=== PATIENT | female | born 1990 | race Two or more races ===

== ENCOUNTER 2016-12-12 09:00 | Emergency (ER) | payer MEDICAID ==
[~2016-12-12] VITALS: Ht 172.7 cm; Wt 98.4 kg
[2016-12-12 09:18] VITALS: BP 126/63
[2016-12-12 09:41] LABS: Basophils # (auto) 0 uL; Basophils % (auto) 0.7 % (0.0-2.0); CONDITION Y; DEFINITIVE SEE PRINTOUT; Eosinophils # (auto) 0 uL; Eosinophils % (auto) 0.4 % (0.0-7.0); Hematocrit 33.7 % (36.0-46.0); Hemoglobin 11.2 g/dL (12.2-16.2); Lymphocytes # (auto) 1.1 uL; Lymphocytes % (auto) 19.2 % (10.0-50.0); Mean Corpuscular Hemoglobin 22.9 pg (28.0-32.0); Mean Corpuscular Hgb Conc. 33.2 g/dL (32.0-36.0); Mean Platelet Volume 7.2 fL (7.4-10.4); Monocytes # (auto) 0.4 uL; Monocytes % (auto) 6.2 % (0.0-12.0); Neutrophils # (auto) 4.3 uL; Neutrophils % (auto) 73.5 % (37.0-80.0); Platelet Count (auto) 410 10^3/uL (140-450); White Blood Cell 5.9 10^3/uL (4.4-10.8)
[2016-12-12 09:50] LABS: Red Cell Distribution Width 20.9 % (11.6-16.0)
[2016-12-12 10:11] LABS: Albumin 3.6 g/dL (3.4-5.0); BUN/Creatinine Ratio 12.5; Bilirubin, Total 0.4 mg/dL (0.2-1.0); Calcium 8.6 mg/dL (8.5-10.1); Potassium 3.5 mmol/L (3.5-5.1); Total Protein 8.5 g/dL (6.4-8.2)
[2016-12-12 10:44] LABS: Anisocytosis Slight; Hypochromia Slight; Microcytosis Slight; Platelet Estimate Adequate
== END 2016-12-12 12:03 | disposition home or self-care (01) ==
LOC: ER 09:02
DX: O20.9 Hemorrhage in early pregnancy, unspecified (principal); O26.891 Other specified pregnancy related conditions, first trimester; Z3A.09 9 weeks gestation of pregnancy
CPT/HCPCS: 36415; 76801; 76817; 80053; 84702; 85025

== ENCOUNTER 2017-02-20 16:01 | Observation (INO) | payer MEDICAID ==
[~2017-02-20] VITALS: Ht 170.2 cm; Wt 107.0 kg
[2017-02-20 16:40] VITALS: BP 118/75
[2017-02-20] MEDS ORDERED: PREN-153 OR (22:31)
== END 2017-02-20 19:55 | disposition other institution (70) | DRG 566 ==
LOC: ER 16:01 → LDRP 17:10 → ER 17:22 → LDRP 17:22
PROVIDERS: ADMIT Obstetrics & Gynecology; ATTEND Obstetrics & Gynecology
DX: O36.8120 Decreased fetal movements, second trimester, not applicable or unspecified (principal); J32.9 Chronic sinusitis, unspecified; O99.512 Diseases of the respiratory system complicating pregnancy, second trimester; Z3A.20 20 weeks gestation of pregnancy
CPT/HCPCS: 59025; 81002; G0378

== ENCOUNTER 2018-07-21 23:24 | Emergency (ER) | payer MEDICAID ==
[~2018-07-21] VITALS: Ht 170.2 cm; Wt 95.3 kg
[~2018-07-21 23:24] MED LIST: PREN-153 OR
[2018-07-22] VITALS: BP 119/75
== END 2018-07-22 00:49 | disposition left against medical advice (07) ==
LOC: ER 23:24
DX: R10.9 Unspecified abdominal pain (principal); Z53.21 Procedure and treatment not carried out due to patient leaving prior to being seen by health care provider